=== PATIENT | female | born 1945 | race African-American/Black ===

== ENCOUNTER 2020-09-12 17:45 | Emergency (ER) | payer OTHER ==
[~2020-09-12] VITALS: Ht 165.1 cm; Wt 90.7 kg
[2020-09-12] MEDS ORDERED: COZAAR100 MG PO (18:06)
[2020-09-12] MEDS ORDERED: METFORMIN HCL500 M3 PO (18:07)
[2020-09-12] MEDS ORDERED: ATORVASTATIN CA10 MG PO (18:16)
[2020-09-12] MEDS ORDERED: QUETIAPINE FUM400 M1 PO (18:17)
[2020-09-12] MEDS ORDERED: CARVEDILOL ER40 MG PO (18:18)
[2020-09-12] MEDS ORDERED: VISTARIL50 MG PO (23:56)
== END 2020-09-12 23:55 | disposition home or self-care (01) ==
LOC: ER 17:45
DX: R07.89 Other chest pain (principal); F41.8 Other specified anxiety disorders